=== PATIENT | male | born 1985 | race Caucasian/White ===

== ENCOUNTER → 2019-02-10 | Outpatient (CLI) | payer BC | LOC: COL.RAD 09:30 | DX: R41.0 Disorientation, unspecified (principal); R51 Headache | CPT/HCPCS: A9585 ==

== ENCOUNTER → 2019-02-24 | Outpatient (CLI) | payer BC | LOC: COL.RAD 12:31 | DX: H53.8 Other visual disturbances (principal); J32.2 Chronic ethmoidal sinusitis; J32.0 Chronic maxillary sinusitis | CPT/HCPCS: Q9967 ==